=== PATIENT | female | born 1960 | race Caucasian/White ===

== ENCOUNTER 2019-09-12 13:44 | Emergency (ER) | payer BC ==
[2019-09-12 14:06] VITALS: BP 132/69
[2019-09-12] MEDS ORDERED: TETANUS/DIPHTHERIA/PERTUSSIS 0.5 ML SYRINGE IM ONE (14:24)
--- NOTE | 2019-09-12 14:26 | ED Physician Documentation ---
PD HPI UPPER EXT INJURY - Stated complaint Stated Complaint: RIGHT THUMB INJ - Chief complaint Chief Complaint: Laceration - History obtained from History obtained from: Patient, Family - History of Present Illness Location: Right, Finger (thimb) Type of injury: Laceration Where injury occurred: Home Timing - onset: Today Timing - duration: Minutes Timing - details: Abrupt onset, Still present Improved by: Rest, Immobilization Worsened by: Moving, Palpating Associated symptoms: No: Weakness, Numbness, Tingling Contributing factors: No: Anticoagulated Similar symptoms before: Diagnosis (laceration) Recently seen: Not recently seen - Additonal information Additional information: 58-year-old female sliced the tip of her thumb right thumb on a sharp part of her vacuum. She has a laceration to the ulnar surface of the distal thumb on the right hand and she has not been able to control the bleeding there is a flap. Review of Systems Constitutional: denies: Fever Eyes: denies: Decreased vision Ears: denies: Ear pain Nose: denies: Congestion Throat: denies: Sore throat Respiratory: denies: Dyspnea, Cough GI: denies: Vomiting PD PAST MEDICAL HISTORY - Past Medical History Past Medical History: No Cardiovascular: None Respiratory: None Neuro: None Endocrine/Autoimmune: None GI: None TRAINING LEAD: None : None HEENT: None Psych: None Musculoskeletal: None Derm: None - Past Surgical History Past Surgical History: No - Present Medications Home Medications: Ambulatory Orders Medication Instructions Recorded Confirmed Cholecalciferol [Vitamin D3] 0 unit PO DAILY 09/12/19 09/12/19 - Allergies Allergies/Adverse Reactions: Allergies Allergy/AdvReac Type Severity Reaction Status Date / Time No Known Drug Allergies Allergy Verified 09/12/19 14:06 - Social History Does the pt smoke?: No Smoking Status: Never smoker - Immunizations Immunizations are current?: No Immunizations: TDAP >10years/unknown - POLST Patient has POLST: No PD ED PE NORMAL - Vitals Vital signs reviewed: Yes (hypertensive ) - General General: No acute distress, Well developed/nourished - HEENT HEENT: Atraumatic, PERRL, EOMI - Respiratory Respiratory: No respiratory distress - Derm Derm: Normal color, Warm and dry, No rash - Extremities Extremities: Other (1.5cm flap laceration to the ulnar surface of the distal R thumb distal n/v is intact. ) - Neuro Neuro: Alert and oriented X 3, informatica architect 2-12 intact, No motor deficit, No sensory deficit, Normal speech Eye Opening: Spontaneous Motor: Obeys Commands Verbal: Oriented GCS Score: 15 - Psych Psych: Normal mood, Normal affect Results - Vitals Vitals: Vital Signs - 24 hr 09/12/19 13:54 Temperature 36 C L Heart Rate 83 Respiratory 14 Rate Blood Pressure 132/69 H O2 Saturation 99 Oxygen O2 Source Room air Procedures - Laceration (location) right thumb Length in cm: 1.5 Wound type: Curved, Flap Neurovascular status: Sensory intact, Motor intact, Vascular intact Wound Preparation: Hibiclens, Wound explored, To the base Skin layer closure: Dermabond, Other (sure close with turniquet, tincture of benzoin, T-strip and dermabond) Other: Patient tolerated well, No complications, Neurovascular intact, Dressing applied, Tetanus booster given Complexity: Simple PD MEDICAL DECISION MAKING - ED course Complexity details: considered differential, d/w patient, d/w family ED course: 50-year-old female with a laceration to the distal right thumb has the wound fixed with the T-ring closure. She is updated on her tetanus as well. Departure - Departure Disposition: 01 Home, Self Care Clinical Impression: Thumb laceration Qualifiers: Encounter type: initial encounter Damage to nail status: without damage Foreign body presence: without foreign body Laterality: right Qualified Code(s): S61.011A - Laceration without foreign body of right thumb without damage to nail, initial encounter Condition: Stable Instructions: ED Laceration Ext Skin Glue, ED Laceration Hand Follow-Up: GERA LUNDBERG MD [Primary Care Provider] -
== END 2019-09-12 14:35 | disposition home or self-care (01) ==
LOC: ED 13:44
DX: S61.011A Laceration without foreign body of right thumb without damage to nail, initial encounter (principal); W26.8XXA Contact with other sharp object(s), not elsewhere classified, initial encounter; Y92.009 Unspecified place in unspecified non-institutional (private) residence as the place of occurrence of the external cause; Z23 Encounter for immunization
CPT/HCPCS: 12001; 90471; 99283; 99284